=== PATIENT | female | born 1990 | race Caucasian/White ===

== ENCOUNTER 2017-08-12 23:25 | Emergency (ER) | payer OTHER, MEDICAID, SELFPAY | END 2017-08-13 02:01 | disposition home or self-care (01) | PROVIDERS: Emergency Provider Emergency Medicine; Visit Provider Emergency Medicine | DX: K59.00 Constipation, unspecified (principal) | CPT/HCPCS: 74022; 80053; 82150; 83690; 85025; 96361; 96374; 99058; 99284; J2405 ==